=== PATIENT | female | born 1935 | race Caucasian/White ===

== ENCOUNTER 2020-02-16 08:07 | Inpatient (IN) | payer MEDICARE, SELFPAY ==
[~2020-02-16] VITALS: Ht 167.6 cm; Wt 68.0 kg
[2020-02-16 08:07] VITALS: BP_SYST 133
--- NOTE | 2020-02-16 08:07 | NUR ---
PLACED INBED 8, TRIAGED AT BEDSIDE BIB [facility]
--- NOTE | 2020-02-16 08:45 | NUR ---
DR. ESCAMILLA AT BEDSIDE
--- NOTE | 2020-02-16 08:50 | NUR ---
Patient BIB, cc of desaturation, saturation on room air 93-95%, cc PNA,UTI. pt alert, orientedx2, confused. cough noted. pt reside from [facility] (+) covid 19. vital sign stable, afebrile. contact- droplet isolation precaution maintained.
[2020-02-16] MEDS ORDERED: ALBUTEROL SULFATE 0.083% 2.5 MG/3 ML VIAL.NEB INH ONE ×2 (09:00→09:08)
--- NOTE | 2020-02-16 09:02 | NUR ---
# 22 gauge angiocath placed to left ac. Use of asceptic technique. Opsite placed over site. Blood return noted. Blood for lab drawn from site. Flushed with 10 cc of normal saline. No evidence of infiltration noted. Patient tolerated well.
--- NOTE | 2020-02-16 09:10 | NUR ---
# 12 FR In and Out catheter with use of sterile technique. Immediate return of 200 ml alber color urine noted. Urine sample collected and sent to lab. Pt tolerated procedure well. Patient unable to toilet self.
[2020-02-16 09:14] LABS: BILIRUBIN,URINE NEGATIVE (NEGATIVE); BLOOD, URINE NEGATIVE (NEGATIVE); CLARITY/URINE CLOUDY (CLEAR); COLOR,URINE YELLOW (YELLOW); GLUCOSE,URINE NEGATIVE (NEGATIVE); KETONES,URINE TRACE (NEGATIVE); LEUKOCYTE ESTERASE ,URINE TRACE (NEGATIVE); NITRITE, URINE POSITIVE (NEGATIVE); PROTEIN URINE TRACE (NEGATIVE)
[2020-02-16 09:26] LABS: BASOPHILS # (AUTO) 0.1 K/uL (0.0-0.2); BASOPHILS % (AUTO) 3.1 % (0.0-2.0); EOSINOPHILS # (AUTO) 0.1 K/uL (0.0-0.4); HEMATOCRIT 32.5 % (36-48); HEMOGLOBIN 10.6 g/dL (12.0-16.0); LYMPHOCYTES # (AUTO) 0.7 K/uL (1.0-5.5); LYMPHOCYTES % (AUTO) 20.4 % (20.5-51.5); MEAN CORPUSCULAR HEMOGLOBIN 29 pg (27-31); MEAN CORPUSCULAR HGB CONC 33 % (32-36); MEAN CORPUSCULAR VOLUME 90 fL (79.0-98.0); MONOCYTES # (AUTO) 0.4 K/uL (0.0-1.0); MONOCYTES % (AUTO) 11.1 % (1.7-9.3); NEUTROPHILS # (AUTO) 2.2 K/uL (1.8-7.7); NEUTROPHILS % (AUTO) 63.4 % (40.0-70.0); PLATELET COUNT (AUTO) 277 K/uL (130-430); RED BLOOD CELL COUNT(AUTO) 3.61 MIL/uL (4.2-6.2); RED CELL DISTRIBUTION WIDTH 17.5 % (9.0-15.0); WHITE BLOOD COUNT (AUTO) 3.4 K/uL (4.8-10.8)
[2020-02-16 09:34] LABS: CALCIUM 8.6 mg/dL (8.4-11.0); CREATININE 0.52 mg/dL (0.55-1.30); GLUCOSE 102 mg/dL (70-99); UREA NITROGEN, BLOOD 19 mg/dL (8-21)
[2020-02-16 09:38] LABS: BACTERIA,URINE MANY /HPF (None Seen); RBC,URINE NONE SEEN /HPF (0-3); WBC,URINE >100 /HPF (0-3)
[2020-02-16 09:39] LABS: CALCIUM OXALATE CRYSTALS,UR None Seen /HPF (None Seen); CALCIUM PHOSPHATE CRYSTALS,UR None Seen /HPF (None Seen); TRICHOMONAS,URINE None Seen /HPF (None Seen); YEAST,URINE None Seen /HPF (None Seen)
[2020-02-16 09:40] LABS: INR 1.1 (0.8-1.2); PROTHROMBIN TIME 10.8 SECS (9.5-12.5)
[2020-02-16 09:44] LABS: ALANINE AMINOTRANSFERASE 13 U/L (12-78); ALBUMIN 2.2 g/dL (3.4-4.8); ASPARTATE AMINOTRANSFERASE 39 U/L (10-37); TOTAL BILIRUBIN 0.9 mg/dL (0.0-1.0)
[2020-02-16 09:45] LABS: SODIUM SERUM 145 mmol/L (136-145)
[2020-02-16] MEDS ORDERED: ASPIRIN 81 MG TAB.CHEW PO ONE (09:45)
[2020-02-16 09:46] LABS: ANION GAP 7 (5-15); CHLORIDE 108 mmol/L (98-107); POTASSIUM 4.2 mmol/L (3.5-5.1)
[2020-02-16] MEDS ORDERED: AMPICILLIN SODIUM/SULBACTAM NA 3 GM in NS 100 ML IV ONE (10:00)
[2020-02-16] MEDS ORDERED: FUROSEMIDE 40 MG/4 ML VIAL IVP ONE (10:00)
[2020-02-16] MEDS ORDERED: ASPIRIN 81 MG TAB.CHEW ONE (10:02)
[2020-02-16] MEDS ORDERED: AMPICILLIN SODIUM/SULBACTAM NA 3 GM VIAL ONE (10:02)
[2020-02-16] MEDS ORDERED: FUROSEMIDE 40 MG/4 ML VIAL ONE (10:05)
[2020-02-16 10:57] LABS: INFLUENZA A&B ANTIGEN SCREEN NEGATIVE FOR A & B (NEGATIVE)
[2020-02-16] MEDS ORDERED: CEL20 PO (10:57)
[2020-02-16] MEDS ORDERED: MIRT15TA7 PO (10:57)
[2020-02-16] MEDS ORDERED: LIP40 PO (10:57)
[2020-02-16] MEDS ORDERED: DIGO125T PO (10:57)
[2020-02-16] MEDS ORDERED: ALEN10TA25 PO (10:57)
[2020-02-16] MEDS ORDERED: DABI110C PO (10:57)
[2020-02-16] MEDS ORDERED: ERGO2500 PO (10:57)
--- NOTE | 2020-02-16 10:58 | NUR ---
Patient will be admitted to care of Dr. Rita Carlton Admitted to telemetry unit. Will go to room 118b. Belongings list completed. Complete and up to date summary report printed. SBAR report to be given at bedside with opportunity for questions.
--- NOTE | 2020-02-16 11:15 | NUR ---
ADMIT NOTE Received pt from ER to the floor with a diagnosis of COVID PNA. Admission process initiated. patient oriented to pain management, safety and call light-teach back done.
--- NOTE | 2020-02-16 11:23 | NUR ---
CONSULT ID CANDACE GILLESPIE [id number] S/W KELLY DACOSTA
--- NOTE | 2020-02-16 11:51 | NUR ---
CONSULT PULMONOLOGY COVID DR EDISON ALVAREZ
[2020-02-16] MEDS ORDERED: AMPICILLIN SODIUM/SULBACTAM NA 1.5 GM in NS 50 ML IV SCH ×2 (12:00→18:00)
[2020-02-16] MEDS ORDERED: DECADRON 4 MG TABLET PO SCH (12:00)
[2020-02-16] MEDS ORDERED: ERGOCALCIFEROL 1.25 MG PO SCH (12:00)
[2020-02-16] MEDS ORDERED: HYDROcodone/ACETAMIN 5-325 MG TAB (NORCO/ VICODIN) PO PRN (12:00)
[2020-02-16] MEDS ORDERED: NALOXONE HCL 0.4 MG/ML AMP (NARCAN) IVP PRN ×2 (12:00)
[2020-02-16] MEDS ORDERED: LORazepam 2 MG/ML VIAL IVP PRN (12:00)
[2020-02-16] MEDS ORDERED: ACETAMINOPHEN 325 MG TABLET PO PRN (12:00)
[2020-02-16] MEDS ORDERED: ONDANSETRON HCL 4 MG/2 ML VIAL IVP PRN (12:00)
[2020-02-16] MEDS ORDERED: ALENDRONATE SODIUM 10 MG TABLET (FOSAMAX) PO SCH (12:00)
[2020-02-16] MEDS ORDERED: ALBUTEROL MDI INHALATION 8 GM INH INH PRN (12:00)
[2020-02-16] MEDS ORDERED: HYDROcodone/ACETAMIN 10-325 MG TAB PO PRN (12:00)
[2020-02-16] MEDS ORDERED: AMPICILLIN SODIUM/SULBACTAM NA 1.5 GM in NS 50 ML IV ONE (12:28)
--- NOTE | 2020-02-16 12:30 | NUR ---
patient eats minimally despite encouragement from RN.
[2020-02-16] MEDS ORDERED: NORMAL SALINE 5 ML DISP.SYRIN IVF SCH (14:00)
[2020-02-16 14:01] VITALS: BP_SYST 135
[2020-02-16] MEDS: NORMAL SALINE 5 ML DISP.SYRIN IVF SCH ×2 (14:17→20:39)
[2020-02-16] MEDS: IPRATROPIUM BROM 0.5 MG/2.5 ML VIAL.NEB (ATROVENT) INH SCH ×2 (15:00→20:15)
--- NOTE | 2020-02-16 15:00 | NUR ---
Patient is resting at this time, no s/s of distress noted.
[2020-02-16 16:00] VITALS: BP_SYST 144
[2020-02-16 16:10] LABS: C-REACTIVE PROTEIN QUANT 3.3 mg/dL (0-0.5)
[2020-02-16] MEDS: CHOLECALCIFEROL (VITAMIN D3) 2,000 UNIT TABLET PO SCH (16:50)
[2020-02-16] MEDS: ASCORBIC ACID 500 MG TABLET PO SCH (16:50)
[2020-02-16] MEDS: cefTRIAXone 1 GM in D5W 50 ML IV SCH (17:00)
[2020-02-16] MEDS: AZITHROMYCIN 500 MG in NS 250 ML IV SCH (17:25)
--- NOTE | 2020-02-16 18:00 | NUR ---
patient eats minimally despite encouragement from RN.
[2020-02-16] MEDS: ATORVASTATIN 20 MG TABLET PO SCH (18:04)
--- NOTE | 2020-02-16 19:46 | NUR ---
REPORT Received report from day shift nurse, patient is lying in bed, aox1, on room air, afib in the heart monitor, isolation and safety measures in place.
[2020-02-16 20:00] VITALS: BP_SYST 96
[2020-02-16] MEDS: MIRTAZAPINE 15 MG TABLET PO SCH (20:38)
[2020-02-16] MEDS ORDERED: DABIGATRAN ETEXILATE MESYLATE 110 MG PO SCH (21:00)
[2020-02-16] MEDS ORDERED: ENOXAPARIN SODIUM 80 MG/0.8 ML SYRINGE SQ SCH (21:00)
[2020-02-16] MEDS: DIGOXIN 0.125 MG TABLET PO SCH (21:00)
--- NOTE | 2020-02-16 21:00 | NUR ---
MED PASS Patient awake, due medications administered, crushed and given with applesauce, hygiene care provided, repositioned for comfort.
[2020-02-16] MEDS: APIXABAN 2.5 MG TABLET PO SCH (21:06)
[2020-02-17] VITALS: BP_SYST 140
--- NOTE | 2020-02-17 00:24 | NUR ---
RN ROUNDS Patient resting quietly, remains on room air, in no distress, vitals stable, repositioned and turned with pillow support, fall and isolation precautions in place.
[2020-02-17] MEDS: IPRATROPIUM BROM 0.5 MG/2.5 ML VIAL.NEB (ATROVENT) INH SCH ×3 (01:46→07:55)
--- NOTE | 2020-02-17 02:02 | NUR ---
RN ROUNDS Patient asleep, breathing is even and unlabored, remains on room air, repositioned and turned with pillow support, fall and isolation precautions in place.
--- NOTE | 2020-02-17 04:22 | NUR ---
RN ROUNDS Patient awake, breathing is even and unlabored, remains on room air, no facial grimacing noted for pain, hygiene care provided, repositioned and turned with pillow support, fall and isolation precautions in place.
[2020-02-17] MEDS: NORMAL SALINE 5 ML DISP.SYRIN IVF SCH ×3 (05:55→20:12)
--- NOTE | 2020-02-17 06:08 | NUR ---
RN ROUNDS Patient asleep, breathing is even and unlabored, remains on room air, repositioned and turned with pillow support, needs attended to, fall and isolation precautions maintained through out the shift. Will monitor until report given to am nurse.
[2020-02-17 06:50] LABS: BASOPHILS % (AUTO) 0.9 % (0.0-2.0); EOSINOPHILS # (AUTO) 0.1 K/uL (0.0-0.4); EOSINOPHILS % (AUTO) 2.2 % (0.0-4.0); HEMATOCRIT 30.9 % (36-48); HEMOGLOBIN 10.7 g/dL (12.0-16.0); LYMPHOCYTES # (AUTO) 0.9 K/uL (1.0-5.5); LYMPHOCYTES % (AUTO) 23.5 % (20.5-51.5); MEAN CORPUSCULAR HEMOGLOBIN 31 pg (27-31); MEAN CORPUSCULAR HGB CONC 35 % (32-36); MEAN CORPUSCULAR VOLUME 89 fL (79.0-98.0); MONOCYTES # (AUTO) 0.4 K/uL (0.0-1.0); MONOCYTES % (AUTO) 9.1 % (1.7-9.3); NEUTROPHILS # (AUTO) 2.6 K/uL (1.8-7.7); NEUTROPHILS % (AUTO) 64.3 % (40.0-70.0); PLATELET COUNT (AUTO) 263 K/uL (130-430); RED BLOOD CELL COUNT(AUTO) 3.48 MIL/uL (4.2-6.2); RED CELL DISTRIBUTION WIDTH 17.6 % (9.0-15.0)
[2020-02-17 07:20] LABS: ANION GAP 5 (5-15); CALCIUM 7.7 mg/dL (8.4-11.0); CHLORIDE 107 mmol/L (98-107); CREATININE 0.56 mg/dL (0.55-1.30); GLUCOSE 94 mg/dL (70-99); SODIUM SERUM 143 mmol/L (136-145); UREA NITROGEN, BLOOD 20 mg/dL (8-21)
--- NOTE | 2020-02-17 08:00 | NUR ---
A/OX1. ON room air, AFIB in the heart monitor. Call light in place, bed locked at the lowest position with alarm on, will continue to monitor. Enhanced Droplet isolation and safety measures in place.
[2020-02-17 08:30] VITALS: BP_SYST 159
[2020-02-17] MEDS: ASCORBIC ACID 500 MG TABLET PO SCH (08:47)
[2020-02-17] MEDS: CITALOPRAM HYDROBROMIDE 20 MG TABLET PO SCH (08:47)
[2020-02-17] MEDS: CHOLECALCIFEROL (VITAMIN D3) 2,000 UNIT TABLET PO SCH (08:47)
[2020-02-17] MEDS: APIXABAN 2.5 MG TABLET PO SCH ×2 (08:48→20:11)
--- NOTE | 2020-02-17 09:45 | NUR ---
Patient is taken to bedside commode. And no signs of distress noted.
[2020-02-17] MEDS ORDERED: IPRATROPIUM BROM 0.5 MG/2.5 ML VIAL.NEB (ATROVENT) INH PRN (10:15)
--- NOTE | 2020-02-17 11:06 | NUR ---
Nutrition Update Shashi Scale 13 noted. Pt admitted for COVID pneumonia. Diet: cardiac BMI: 24.2 kg/m2 RD to follow per nutrition care standards.
[2020-02-17] MEDS ORDERED: POTASSIUM CHLORIDE 20 MEQ TAB.PRT.SR PO ONE ×2 (11:30→16:30)
[2020-02-17 12:00] VITALS: BP_SYST 130
--- NOTE | 2020-02-17 12:00 | NUR ---
Patient is fed lunch, tolerating without distress.
--- NOTE | 2020-02-17 13:40 | NUR ---
Dr. Salinas is called about patient's potential transfer. He delegated decision to Dr. Jimenez, the ID doctor.
--- NOTE | 2020-02-17 15:37 | NUR ---
[employer] :notes ELECTRONICS UTILITY WORKER received call from pts. Gisselle pineda, wanting to know why her mom cannot be transferred to [place]. ELECTRONICS UTILITY WORKER stated she will inquire with the Rn. and call her back. ELECTRONICS UTILITY WORKER called Rn. Blas Nicole who stated he would look into the matter. He would also contact Dr. Salinas to inquire about the pts. status. ELECTRONICS UTILITY WORKER will remain available as needed.
[2020-02-17 16:00] VITALS: BP_SYST 141
--- NOTE | 2020-02-17 16:14 | NUR ---
patient has an episode of urinary incontinence.
[2020-02-17] MEDS: AZITHROMYCIN 500 MG in NS 250 ML IV SCH (16:23)
[2020-02-17] MEDS: cefTRIAXone 1 GM in D5W 50 ML IV SCH (17:00)
--- NOTE | 2020-02-17 18:30 | NUR ---
Patient ate some dinner and had a BM on bedside commode.
[2020-02-17] MEDS: ATORVASTATIN 20 MG TABLET PO SCH (18:50)
[2020-02-17] MEDS: MIRTAZAPINE 15 MG TABLET PO SCH (20:11)
[2020-02-17 20:12] VITALS: BP_SYST 103
[2020-02-17] MEDS: DIGOXIN 0.125 MG TABLET PO SCH (20:12)
--- NOTE | 2020-02-17 21:00 | NUR ---
MED PASS Patient awake, due medications administered, crushed and given with applesauce, aspiration precautions maintained. Patient tolerated well.
--- NOTE | 2020-02-17 22:19 | NUR ---
RN ROUNDS Patient resting quietly in bed, remains on room air, hygiene care provided, repositioned and turned with pillow support, fall and isolation precautions in place.
[2020-02-18 00:13] VITALS: BP_SYST 148
--- NOTE | 2020-02-18 00:30 | NUR ---
RN ROUNDS Patient awake, resting quietly, remains on room air, vitals stable, hygiene care provided, repositioned and turned with pillow support, fall and isolation precautions in place.
--- NOTE | 2020-02-18 02:13 | NUR ---
RN ROUNDS Patient asleep, breathing is even and unlabored, remains on room air, repositioned and turned with pillow support, fall and isolation precautions in place.
--- NOTE | 2020-02-18 04:04 | NUR ---
RN ROUNDS Patient awake, in no distress, remains on room air, hygiene care provided, repositioned and turned with pillow support, fall and isolation precautions in place.
[2020-02-18] MEDS: NORMAL SALINE 5 ML DISP.SYRIN IVF SCH ×2 (06:42→14:00)
[2020-02-18 07:07] LABS: BASOPHILS % (AUTO) 0.9 % (0.0-2.0); EOSINOPHILS # (AUTO) 0.1 K/uL (0.0-0.4); EOSINOPHILS % (AUTO) 1.8 % (0.0-4.0); HEMATOCRIT 35.6 % (36-48); HEMOGLOBIN 11.5 g/dL (12.0-16.0); LYMPHOCYTES % (AUTO) 21.2 % (20.5-51.5); MEAN CORPUSCULAR HEMOGLOBIN 29 pg (27-31); MEAN CORPUSCULAR HGB CONC 33 % (32-36); MEAN CORPUSCULAR VOLUME 89 fL (79.0-98.0); MONOCYTES # (AUTO) 0.3 K/uL (0.0-1.0); MONOCYTES % (AUTO) 5.9 % (1.7-9.3); NEUTROPHILS # (AUTO) 3.3 K/uL (1.8-7.7); NEUTROPHILS % (AUTO) 70.2 % (40.0-70.0); PLATELET COUNT (AUTO) 290 K/uL (130-430); RED BLOOD CELL COUNT(AUTO) 3.98 MIL/uL (4.2-6.2); RED CELL DISTRIBUTION WIDTH 17.9 % (9.0-15.0); WHITE BLOOD COUNT (AUTO) 4.7 K/uL (4.8-10.8)
[2020-02-18 07:45] LABS: ANION GAP 10 (5-15); CHLORIDE 106 mmol/L (98-107); CREATININE 0.53 mg/dL (0.55-1.30); GLUCOSE 90 mg/dL (70-99); POTASSIUM 3.5 mmol/L (3.5-5.1); SODIUM SERUM 143 mmol/L (136-145); UREA NITROGEN, BLOOD 17 mg/dL (8-21)
[2020-02-18 08:24] LABS: C-REACTIVE PROTEIN QUANT 2.7 mg/dL (0-0.5)
[2020-02-18 08:52] LABS: ERYTHROCYTE SEDIMENTATION RATE 34 MM/HR (0-20)
[2020-02-18 09:30] VITALS: BP_SYST 131
[2020-02-18] MEDS: CHOLECALCIFEROL (VITAMIN D3) 2,000 UNIT TABLET PO SCH (09:59)
[2020-02-18] MEDS: ASCORBIC ACID 500 MG TABLET PO SCH (09:59)
[2020-02-18] MEDS: APIXABAN 2.5 MG TABLET PO SCH (10:03)
[2020-02-18] MEDS: CITALOPRAM HYDROBROMIDE 20 MG TABLET PO SCH (10:03)
[2020-02-18 12:00] VITALS: BP_SYST 146
--- NOTE | 2020-02-18 14:54 | NUR ---
DC Planning: transfer to [place]< Updated pt's dtr/Gisselle for possible transfer to [facility] if bed is available. Per MARLENA Tyson, she is looking for bed at pt to [facility]. Gisselle agreed with the transfer, POC. DC package placed in [facility]-- MARIANA Odonnell made aware.
[2020-02-18 16:00] VITALS: BP_SYST 132
[2020-02-18] MEDS ORDERED: NACL 0.9% 1,000 ML IV SCH (16:30)
--- NOTE | 2020-02-18 16:36 | NUR ---
[facility]: per Hillary, will transfer pt this pm. Hand off check list to be completed by MARIANA Garcia , need POA form and updated meds list/reconciliations and the final dc order from PCP. __ RN Jose made aware. bereket Thornton at [place] will call nursing unit to give bed and ambuance time.
--- NOTE | 2020-02-18 17:22 | NUR ---
[place] of care 0800 - resumed patient care from eloina Collier. Patient is in bed, mumbling and talking to self. no respiratory distress. Saturation at 95% on room air. assisted with breakfast observing aspiration precautions. due medications given 1200 Accucheck performed. Wound care to the sacral area done. Change and repositioned patient. Patient doesnt't want to eat at this time 1400 Assisted with lunch observing aspiration precaution. S/W son Lalo Child identified in patient persn to notify and gave him update re patient plan of care.
[2020-02-18] MEDS: AZITHROMYCIN 500 MG in NS 250 ML IV SCH (17:28)
--- NOTE | 2020-02-18 19:25 | NUR ---
CLOSING NOTES LATE ENTRY DUE TO PATIENT CARE 1800 PATIENT REFUSED TO EAT AT THIS TIME. ACCUCHECK PERFORM . STARTED IVF OF NS AT 50 ML PER HOUR. 1830 RECEIVED PHONE CALL FROM SEDRICK CALL SCRAP METAL COLLECTOR WITH INFORMATION RE TRANSFER TO [facility]. CALLED AND NOTIFIED SON RIAZ FLANAGAN OF TRANSFER
--- NOTE | 2020-02-18 19:40 | NUR ---
ROUNDS PATIENT RESTING COMFORTABLY IN BED, NOT IN DISTRESS, VITALS STABLE. NO SIGNS OF ANY PAIN AND DISCOMFORT NOTED. PATIENT PREPARED FOR TRANSFER TO [facility] ORDERED. NEEDS ATTENDED TO. MADE CLEAN AND COMFORTABLE. SAFETY AND FALL MEASURES IN PLACED. BED IN LOW AND LOCKED POSITION. CALL LIGHT PLACED WITHIN REACH.
[2020-02-18 19:41] VITALS: BP_SYST 144
--- NOTE | 2020-02-18 21:22 | NUR ---
NOTES CALLED JAKUB ADAMS AND GIVE REPORT TO MARIANA CONTI. PATIENT GOING TO ROOM 4051. WILL CONTINUE TO MONITOR.
--- NOTE | 2020-02-18 22:00 | NUR ---
CLOSING NOTES PATIENT TRANSFERRED TO [facility] ORDERED WITH STABLE VITAL SIGNS. DISCHARGE PACKET DONE, BELONGINGS DONE, IV HEPLOCK, MADE CLEAN AND CHANGED. ALL NEEDS ATTENDED TO.
== END 2020-02-18 22:00 | disposition short-term general hospital (02) | DRG 871 ==
LOC: SED 08:07 → STU 10:16
PROVIDERS: ADMIT Preventive Medicine Preventive Medicine/Occupational Environmental Medicine; ATTEND Preventive Medicine Preventive Medicine/Occupational Environmental Medicine
DX: A41.89 Other specified sepsis (principal); E43 Unspecified severe protein-calorie malnutrition; I21.A1 Myocardial infarction type 2; U07.1 COVID-19; J12.89 Other viral pneumonia; J96.00 Acute respiratory failure, unspecified whether with hypoxia or hypercapnia; N39.0 Urinary tract infection, site not specified; D64.9 Anemia, unspecified; D72.810 Lymphocytopenia; E83.51 Hypocalcemia; E78.5 Hyperlipidemia, unspecified; E87.6 Hypokalemia; F02.80 Dementia in other diseases classified elsewhere, unspecified severity, without behavioral disturbance, psychotic disturbance, mood disturbance, and anxiety; G30.9 Alzheimer's disease, unspecified; I08.1 Rheumatic disorders of both mitral and tricuspid valves; R73.9 Hyperglycemia, unspecified; I25.10 Atherosclerotic heart disease of native coronary artery without angina pectoris; I27.20 Pulmonary hypertension, unspecified; I48.91 Unspecified atrial fibrillation; I49.5 Sick sinus syndrome; B96.1 Klebsiella pneumoniae [K. pneumoniae] as the cause of diseases classified elsewhere; I50.9 Heart failure, unspecified; Z79.01 Long term (current) use of anticoagulants; Z87.440 Personal history of urinary (tract) infections; Z88.5 Allergy status to narcotic agent; Z95.0 Presence of cardiac pacemaker; Z88.8 Allergy status to other drugs, medicaments and biological substances; I08.3 Combined rheumatic disorders of mitral, aortic and tricuspid valves
CPT/HCPCS: 36415; 71045; 74018; 80048; 80053; 80162-TC; 81000-TC; 82728; 83605; 83880; 84484; 85025; 85379; 85610-TC; 85651-TC; 86140; 86710; 87040-TC; 87086; 93005; 93306; 94640; 96365; 96375; 99285; G0378; J0295; J0456; J0696; J1650; J1940; J7050; J7060; J7613; J8540